=== PATIENT | female | born 1980 | race Caucasian/White ===

== ENCOUNTER 2017-02-22 11:25 | Inpatient (IN) ==
[2017-02-22] MEDS ORDERED: MORPHINE SULFATE 4 MG/1 ML IVP ONE (11:51)
[2017-02-22] MEDS ORDERED: Sodium Chloride 0.9% 1,000 ML PRIMARY IV ONE ×3 (11:51→17:04)
[2017-02-22] MEDS ORDERED: ONDANSETRON 4 MG/2 ML VIAL IVP ONE (11:51)
[2017-02-22] MEDS ORDERED: NORMAL SALINE 10 ML SYRINGE FLUSH IVP PRN ×8 (11:51→17:25)
[2017-02-22 12:19] LABS: BASOPHILS # (AUTO) 0.04 10*3/UL; BASOPHILS % (AUTO) 0.5 % (0-1); EOSINOPHILS # (AUTO) 0.23 10*3/UL; Hematocrit [HCT] 39.9 % (37.0-47.0); LYMPHOCYTES # (AUTO) 2.37 10*3/uL; MEAN CORPUSCULAR HEMOGLOBIN 27.1 PG (27-31); MEAN CORPUSCULAR HGB CONC 32.6 g/dL (33-37); MEAN CORPUSCULAR VOLUME 83.3 FL (81-99); MEAN PLATELET VOLUME 10.4 FL (7.4-12.2); MONOCYTES # (AUTO) 0.79 10*3/UL (0.3-0.8); MONOCYTES % (AUTO) 10.2 % (5-15); NEUTROPHILS # (AUTO) 4.29 10*3/UL; NEUTROPHILS % (AUTO) 55.4 % (50-80); RED BLOOD COUNT 4.79 10^6/uL (4.20-5.40)
[2017-02-22 12:20] LABS: BLOOD UREA NITROGEN 10 mg/dL (7-22); BUN/CREATININE RATIO 16.66 (6-20); LIPASE 106 IU/L (23-300); SERUM ALBUMIN 4.2 g/dL (3.5-4.8)
[2017-02-22 12:21] LABS: BILIRUBIN,URINE NEGATIVE (NEG); CLARITY,URINE CLEAR (CLEAR); COLOR,URINE YELLOW (Y); GLUCOSE, URINE (UA) NEGATIVE (NEG); NITRATE,URINE POSITIVE (NEG); OCCULT BLOOD,URINE MODERATE (NEG); PH,URINE 6.5 (5.0-8.5); PLATELET MORPHOLOGY COMMENT NORMAL MORPHOLOGY (NORM); PROTEIN,URINE >300 mg/dl (NEG); RBC MORPHOLOGY COMMENT NORMAL MORPHOLOGY (NORM); UROBILINOGEN,URINE 0.2 EU/dL (0.2); WBC MORPHOLOGY COMMENT NORMAL MORPHOLOGY (NORM)
[2017-02-22 12:28] LABS: BACTERIA,URINE MODERATE; SQUAMOUS EPITHELIAL CELL,UR RARE
[2017-02-22 14:48] LABS: URINE SAMPLE TYPE CATH SPECIMEN
[2017-02-22] MEDS ORDERED: MORPHINE SULFATE 2 MG/1 ML IVP ONE ×2 (15:01→17:04)
--- NOTE | 2017-02-22 15:12 | DI ---
Exam: US OB/ENDOVAG INDICATION: Suspected ectopic, history of pelvic pain early COMPARISON: No prior pelvic ultrasound available TECHNIQUE: Real-time sonographic evaluation of the female pelvis obtained using grayscale and color flow. FINDINGS: LMP is noted to be 12/31/16. Uterus measures 10.0 x 5.1 x 4.7 cm no focal myometrial lesion. No intrauterine gestational sac is seen. In the left ovary there is a 1.5 x 1.3 x 0.1 cm complex cystic structure is small echogenic focus demonstrating cardiac activity and pole measuring 6 mm. The heart rate at 130 bpm. This is concerning for a left adnexal gestational sac/ectopic which by mean sac diameter with be at approximately 6 weeks 2 day. Flow to left ovaries demonstrated. No focal right ovarian lesion. Small amount of free fluid is noted. IMPRESSION: 1. Left ovarian complex cyst measuring 1.5 x 1.3 x 0.1 cm with yolk sac present and pole. cardiac activity is measured at 130 bpm. This would be compatible with an ectopic left ovarian at 6 weeks 2 day gestational age. 2. Small amount of free fluid the pelvis. 3. No intrauterine gestational sac is seen. Discussed with Dr. Hussain Calderon on 02/22 15:11 (-06:00) [employer] 02/22/17 15:12 Call Doctor Regarding Above results, called Dr. Hussain Calderon on 02/22 15:10 (-06:00)
[2017-02-22] MEDS ORDERED: ROCURONIUM 10 MG/1 ML - 5 ML VIAL IVP ONE (15:17)
[2017-02-22] MEDS ORDERED: SUCCINYLCHOLINE CHLORIDE 20 MG/1 ML - 10 ML ONE (15:17)
[2017-02-22] MEDS ORDERED: CefOXitin Inj 2 GM in Sodium Chloride 0.9% 100 ML IV SCH (15:30)
[2017-02-22] MEDS ORDERED: Lactated Ringers 1,000 ML PRIMARY IV SCH ×3 (15:30→17:15)
--- NOTE | 2017-02-22 15:34 | PDOC ---
HPI - History of Present Illness Date and Time of Service: 923 at 1525 Chief Complaint: Pelvic pain History of Present Illness: 36-year-old female who believes that she is inserted have an abdominal pain today. Patient now rates pain as an 8 out of 10. It is made worse by movement. It is located right and left. Patient states that she had a right ectopic in the past. She has had multiple miscarriages no living natural children. Patient feels nauseated. States that she has not passed out. Ultrasound shows a left ectopic be in 6 weeks 2 days in gestational age. There is a heart rate of 135. Past Medical History Medical History: Polycystic ovarian disease Surgical History: Ectopic Tobacco Use: Never Smoker In the Past 12 Months, Have Used or Abuse Any of the Following Substance: None Medication / Allergies Home Medications: Home Medications Medication Instructions Recorded Confirmed Type Metoprolol Tartrate 50 mg PO BID 02/22/17 02/22/17 History metFORMIN Tab [Glucophage Tab] 500 mg PO BID 02/22/17 02/22/17 History Allergies/Adverse Reactions: Allergies 3 Allergy/AdvReac Type Severity Reaction Status Date / Time No Known Allergies Allergy Unverified 02/22/17 11:35 Exam - Vitals Vital Signs: Vital Signs Temperature 96.9 F Temperature Source Temporal Artery Scan Pulse Rate [Pulse Oximeter] 105 Respiratory Rate 18 Blood Pressure [Right Arm] 135/77 Pulse Ox 98 Oxygen Delivery Method Room Air Height 5 ft 4 in Weight 220 lb - General General Appearance: Cooperative, Mild Distress - Head Head Exam: Normocephalic - Eye Eye Exam: POSITIVE: PERRL, EOMI - Neck Neck Exam: Full ROM, No Tenderness - Respiratory Respiratory Exam: POSITIVE: Clear to Auscultation - Bilaterally, Breathing Non Labored - Cardiovascular Cardiovascular Exam: POSITIVE: RRR, No Murmur, No Clicks - GI/Abdominal GI/Abdominal Exam: POSITIVE: Non Distended, Soft, No Masses, Positive for RUQ Pain, No Hepatomegaly, No Splenomegaly (Patient has tenderness greater in the left pelvic area than the right. There is rebound but no guarding at this time) - Rectal Rectal Exam: POSITIVE: Deferred - External Exam: POSITIVE: Deferred - Extremities Extremities Exam: POSITIVE: Full ROM, Normal Capillary Refill, No Clubbing Present, No Edema Present - Neurological Neurological Exam: POSITIVE: Alert, Oriented x 3 - Psychiatric Psychiatric Exam: POSITIVE: Normal Affect, Normal Mood - Integumentary Integumentary Exam: POSITIVE: Normal Color, Warm Results - Labs CBC and BMP: 02/22/17 11:52 02/22/17 11:52 Assessment and Plan - Patient Problems (1) Ectopic , tubal Current Visit: Yes Status: Acute Code(s): O00.10 - Tubal without intrauterine - Assessment / Plan Additional Assessment/Plan Details: At the present time, I think patient does need to have surgery. She did drop her blood pressure 6 in the emergency department. This probably responded promptly to Tanner the patient flat and given a fluid bolus. The question is whether or not the tube can be safe since she's had a previous ectopic . 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 They both state that it is unlikely to have a tube preserving procedure done at this time. I discussed the situation with the patient and her family. They all understand that there is a high likelihood that this will leave her infertile. There are other methods to become of better available to home. They all understand this. They understand the risk of surgery. They have given consent. The patient in the family understand I am a general surgeon not an OB/ PIPING DRAFTER surgeon
[2017-02-22] MEDS ORDERED: BUPIVACAINE 0.5% W/ EPI - 10 ML VIAL ONE (15:44)
[2017-02-22] MEDS ORDERED: Sodium Chloride 0.9% vial 20 ML ONE (15:44)
[2017-02-22] MEDS ORDERED: Acetaminophen 1000mg Inj 1,000 MG/100 ML VIAL IV ONE (16:39)
--- NOTE | 2017-02-22 17:04 | GEN.OPNOTE ---
Operative Note Surgery Date: 02/22/17 Preoperative Diagnosis: Ectopic Postoperative Diagnosis: Ruptured ectopic with intra-abdominal hemorrhage Procedure: Laparoscopic salpingo-ectomy for ectopic Anesthesia Provider: Alvarez Oviedo CRNA Anesthesia Type: General Estimated Blood Loss (mL): 850 Fluids: 2 g of Mefoxin. 2500 mL of LR Pathology: Left fallopian tube and ectopic Indications: Patient has a left ectopic Findings: Ruptured ectopic of the left adnexal structures. This is a tubal that had ruptured. 850 mL of blood aspirated out the abdomen prior to irrigation Complications: None Operative Summary: Patient is brought in the operating room. Placed supine position. Given general tracheal anesthesia. Prepped draped sterile fashion. Timeout performed per protocols. Quarter percent Marcaine was injected at all trocar sites. I made a small incision below the umbilicus. Veress needle inserted pneumoperitoneum obtained. Using the Visiport place a 10 mm trocar and camera. Patient had large amount of blood seen within the abdominal cavity. Under direct laparoscopic visualization a 5 mm placed suprapubically. I then aspirated out 850 mL of clotted an old appearing blood. I then placed a 10 mm trocar the left lower quadrant. I then grasped the fallopian tube with a grasper. Using the gyrus I carefully cauterized and dissected the fallopian tube from the ovary. We then carefully dissected the fallopian tube completely out using the gyrus. When I got beyond the ectopic I then went across the fallopian tube with the gyrus. Put the fallopian tube and ectopic contents into a Endo Catch bag. But the Endo Catch bag out through the left lower quadrant incision. We then inspected there is no active bleeding was identified. The right and left ovaries were identified photographs taken. The right fallopian tube was shortened but appeared to be intact. We irrigated until clear. Deinsufflated the abdomen. There are only small trocar fascial defects of they were not closed. Skin reapproximated using 4-0 Vicryl simple interrupted subcutaneous stitches. Steri-Strips were applied. Sterile dressings applied. All counts were correct. Patient transferred recovery room in stable condition. Patient Problems - Patient Problem List (1) Ectopic , tubal Current Visit: Yes Status: Acute Code(s): O00.10 - Tubal without intrauterine Category: Medical
[2017-02-22] MEDS ORDERED: MORPHINE SULFATE 2 MG/1 ML IVP PRN ×2 (17:07→17:25)
[2017-02-22] MEDS ORDERED: oxyCODONE IR Tab 5 MG TAB PO PRN (17:07)
[2017-02-22] MEDS ORDERED: Acetaminophen 1000mg Inj 1,000 MG/100 ML VIAL IV PRN (17:07)
[2017-02-22] MEDS ORDERED: ONDANSETRON 4 MG/2 ML VIAL IVP PRN (17:07)
[2017-02-22] MEDS ORDERED: HYDROmorphone 2 MG/1 ML IVP PRN (17:16)
[2017-02-22] MEDS ORDERED: Prochlorperazine Edisylate Inj 10mg/2ml vial IVP PRN (17:16)
[2017-02-22] MEDS ORDERED: Sodium Chloride 0.9% 100 ML IV ONE (17:18)
--- NOTE | 2017-02-22 17:28 | CRNA.PROGR ---
Anesthesia Time - - Start date: 02/22/17 End date: 02/22/17 - Procedure/Recovery Time Anesthesia : Time In: 15:38 Anesthesia : Time Out: 17:09 Anesthesia : Total Time: 91 - Total Anesthesia Time Total Anesthesia Time (minutes): 91 - Other Weight: 99.79 kg Height: 5 ft 4 in Body Mass Index (BMI): 37.8 Physical Status: P3 (Emergency) Anesthesia Type: General Anesthesia : ET
[2017-02-22] MEDS ORDERED: Sodium Chloride 0.9% 1,000 ML ONE (18:00)
[2017-02-22] MEDS: oxyCODONE IR Tab 5 MG TAB PO PRN (19:25)
[2017-02-22] MEDS: Lactated Ringers 1,000 ML PRIMARY IV SCH (19:30)
[2017-02-22] MEDS: Metoprolol TARTRATE Tab 50 MG TAB PO SCH (20:38)
[2017-02-22] MEDS: metFORMIN 500 MG TABLET PO SCH (20:38)
[2017-02-22 21:05] LABS: Hematocrit [HCT] 29.2 % (37.0-47.0); Hemoglobin [HGB] 9.1 g/dL (12.0-16.0)
--- NOTE | 2017-02-23 01:31 | PDOC ---
Abdomen/Flank HPI - General Chief Complaint: Abdomen Pain Stated Complaint: ABD PAIN Date Seen by Provider: 02/22/17 Time Seen by Provider: 11:35 Source: POSITIVE: Patient, Spouse Exam Limitations: POSITIVE: No limitations Nurse's Notes Reviewed & Considered: Yes EMS Report Reviewed & Considered: Verbal - History of Present Illness Initial Comments: The patient is a 36-year-old female who presents to the emergency room by ambulance. Patient states that for the past 3 or 4 days she has had some intermittent discomfort in her lower abdomen, right greater than left. 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 Patient states she's had nausea but no vomiting. She states she had an ectopic in 2012 on the right and states that her present symptoms are similar to what she experienced at that time. Her last normal menstrual period was 31 December. She states she has had "a little vaginal bleeding today ". No fevers or chills. No vomiting, diarrhea, melena, hematochezia, hematemesis, dysuria or hematuria. She last ate around 7 PM last night. Body Location Affected: REPORTS: Abdomen Timing: REPORTS: Abrupt, Other (As above) Duration: 1 hour Severity: Moderate Quality: REPORTS: "Pain" Abdominal Pain Onset Location: REPORTS: RLQ, LLQ Abdominal Pain Radiation: REPORTS: No radiation Context: REPORTS: None Modifying Factors: improves with: Nothing Associated Symptoms: REPORTS: Light Headedness Similar Symptoms Previously: Yes (with previous ectopic in 2002) Recent Care Received: REPORTS: Denies Any Prior Injuries Related to Current Complaint?: No - Patient Home Medications Home Medications: Home Medications Metoprolol Tartrate 50 mg PO BID 02/22/17 metFORMIN Tab [Glucophage Tab] 500 mg PO BID 02/22/17 - Patient Allergies Allergies/Adverse Reactions: Allergies 3 Allergy/AdvReac Type Severity Reaction Status Date / Time No Known Allergies Allergy Unverified 02/22/17 11:35 Past Medical History - heen HEENT History: Denies History Cardiovascular History: Hypertension Respiratory History: Denies History Gastrointestinal History: Denies History Genitourinary History: Denies History Endocrine History: Denies History Musculoskeletal History: Denies History Prosthesis or Implant: No Neurological History: Denies History Blood Disorders: Denies History Psychiatric History: Denies History History of Sexually Transmitted Diseases: No Female Reproductive History: Other (please comment) Additional Female Reproductive History: PCOS LMP: EARLY DECEMBER Obstetrical History: Other (please comment) Additional Obstetrical History: ECTOPIC , PARTIAL RIGHT FALLOPIAN TUBE REMOVAL Cancer History: Denies History In Past Year Been Physically Harmed or Verbally Threatened: No History of MDRO: No History of Other Communicable Diseases: No Tobacco Use: Never Smoker In the Past 12 Months, Have Used or Abuse Any Substance: None Previous Surgical History: Yes Past Medical History Reviewed: Reviewed - No Changes ROS - Limitations ROS Limitations: No Limitations Constitution: REPORTS: Denies Symptoms Cardiovascular: REPORTS: Denies Cardiac Symptoms Respiratory: REPORTS: Denies Resp Symptoms Neurological: REPORTS: Denies Neuro Symptoms Gastrointestinal: REPORTS: Abdominal Pain (As above; see diagram), Nausea Endocrine: REPORTS: Denies Symptoms Genitourinary: REPORTS: Denies Symptoms Eyes: REPORTS: Denies Symptoms ENT: REPORTS: Denies Symptoms Skin: REPORTS: Denies Skin Symptoms Lympathic: REPORTS: Denies Lympathic Symptoms Immunologic: POSITIVE: Denies Symptoms Psychiatric: POSITIVE: Denies Psych Symptoms Abdominal/Flank Pain PE - General Appearance General Appearance: POSITIVE: Alert, Cooperative, No Acute Distress, No Evidence of Trauma - HEENT HEENT: POSITIVE: Head Inspection Nml, Eyes Inspection Nml, Ears Inspection Nml, Nose Inspection Nml, Oral/Dental Inspect. Nml, Pharynx Inspect. Nml, PERRL, EOMI - Neck Neck: POSITIVE: Normal Inspection, No Apparent Injury - Respiratory Respiratory: POSITIVE: No Respiratory Distress, Breath Sounds Normal, Chest Non- Tender - Cardiovascular Cardiovascular: POSITIVE: Regular Rate and Rhythm, Heart Sounds Normal, Equal Pulses, Strong Pulses Peripheral Pulses: Radial (R): 2+, Radial (L): 2+ - Chest Chest: POSITIVE: Non Tender - Abdomen Abdomen: Soft: (All Quadrants), Normal Bowel Sounds: (All Quadrants), Denies Tenderness: (LUQ), (RUQ), No Splenomegaly: (All Quadrants), No Hepatomegaly: ( All Quadrants), No Guarding: (All Quadrants), No Rebound: (All Quadrants), No Palpable Pulse: (All Quadrants), No Palpabale Mass: (All Quadrants), No Distention: (All Quadrants), No Rigidity: (All Quadrants), Tenderness Noted: ( LLQ), (RLQ) Additional Abdominal Details: Abdominal examination shows bowel sounds to be present. She does express pain on palpation lower abdomen, right somewhat more than left. 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 Fluid in pelvis. Lab Results Reviewed by Me: Yes (quantitative hCG 17,264) CBC and BMP: 02/22/17 21:03 02/22/17 11:52 - Patient's Progress Pain Medication Addressed: POSITIVE: Yes (Patient given morphine sulfate for pain) Re-examine Time: 14:35 Re-Examine Comment: Diagnosis of ectopic discussed with patient and her family. Dr. Chirinos, surgeon, contacted, who will come to the emergency room to further evaluate and treat. Status: POSITIVE: Unchanged, Re-Examined - Consult Consult (If Yes, Name of Consulting MD & Time Called): Yes (Dr. Martinez, surgeon, [id number]) Consulting MD will see pt:: POSITIVE: In ED Counseled: POSITIVE: Patient, Family, RE: Lab Results, RE: Radiology Results, RE : DX, RE: Need for F/U Patient Care Time - Estimated PCT Patient Care Time (In Minutes): 60 Vital Signs - VS Reviewed Vital Signs Reviewed: Yes Discharge Clinical Impression: Ectopic , tubal Discharge Disposition: Admit to Inpatient Condition: Fair Date Decision to Admit to Inpatient: 02/22/17 Time Decision to Admit to Inpatient: 14:15
[2017-02-23] MEDS: oxyCODONE IR Tab 5 MG TAB PO PRN ×5 (02:35→23:06)
[2017-02-23 05:23] LABS: BASOPHILS # (AUTO) 0 10*3/UL; BASOPHILS % (AUTO) 0 % (0-1); EOSINOPHILS # (AUTO) 0 10*3/UL; EOSINOPHILS % (AUTO) 0 % (0-8); Hematocrit [HCT] 25.9 % (37.0-47.0); Hemoglobin [HGB] 8.1 g/dL (12.0-16.0); MEAN CORPUSCULAR HEMOGLOBIN 26.9 PG (27-31); MEAN CORPUSCULAR HGB CONC 31.3 g/dL (33-37); MEAN PLATELET VOLUME 10.7 FL (7.4-12.2); MONOCYTES # (AUTO) 0.66 10*3/UL (0.3-0.8); MONOCYTES % (AUTO) 5.7 % (5-15); NEUTROPHILS % (AUTO) 84.6 % (50-80); RED BLOOD COUNT 3.01 10^6/uL (4.20-5.40)
[2017-02-23 05:45] LABS: BLOOD UREA NITROGEN 8 mg/dL (7-22); BUN/CREATININE RATIO 13.33 (6-20)
[2017-02-23 05:46] LABS: PLATELET MORPHOLOGY COMMENT NORMAL MORPHOLOGY (NORM); RBC MORPHOLOGY COMMENT SEE COMMENTS (NORM); WBC MORPHOLOGY COMMENT NORMAL MORPHOLOGY (NORM)
[2017-02-23] MEDS: Lactated Ringers 1,000 ML PRIMARY IV SCH (07:19)
[2017-02-23] MEDS: metFORMIN 500 MG TABLET PO SCH ×2 (09:07→21:05)
[2017-02-23] MEDS: Metoprolol TARTRATE Tab 50 MG TAB PO SCH ×2 (09:07→21:05)
[2017-02-23] MEDS: Acetaminophen 1000mg Inj 1,000 MG/100 ML VIAL IV PRN ×2 (10:30→16:59)
[2017-02-23] MEDS: ONDANSETRON 4 MG/2 ML VIAL IVP PRN (10:30)
--- NOTE | 2017-02-23 11:43 | PDOC(PROG) ---
Subjective Post Op Day: postop day 1 Pain Management: PO Garvin Catheter: No Flatus: No Diet: Regular Date and Time of Service: 02/23/2017 at 1145 Interval History: Patient states that she overall feels better than she did yesterday little bit lightheaded when she gets up and walks. She initially was not lightheaded or dizzy when she is walking last night after surgery. Little bit of nausea Objective : Data - Labs CBC and BMP: 02/23/17 04:00 02/23/17 04:00 - Vital Signs Vital Signs and I&O: Vital Signs - Last Taken Temperature 98.3 F 02/23/17 08:14 Pulse Rate 94 02/23/17 08:14 Respiratory Rate 20 02/23/17 08:14 Blood Pressure 124/78 02/23/17 08:14 Pulse Ox 97 02/23/17 08:14 Intake and Output (24hr x 4 totals) 02/21/17 02/22/17 02/23/17 02/24/17 05:59 05:59 05:59 05:59 Intake Total 345 / 1545 240 / 240 Output Total 1000 / 1000 420 / 420 Balance -655 / 545 -180 / -180 Objective : Exam - General General Appearance: No Acute Distress, Cooperative - Respiratory Respiratory Exam: Clear to Auscultation - Bilaterally - GI/Abdominal GI/Abdominal Exam: Non Tender, Non Distended, Soft Assessment and Plan - Patient Problems (1) Ectopic , tubal Current Visit: Yes Status: Acute Code(s): O00.10 - Tubal without intrauterine - Assessment / Plan Additional Assessment/Plan Details: Present time patient's hemoglobin has dipped down to 8.1. Was 9.1 after surgery. I do not think she is actively bleeding. Her vital signs are stable. We will watch today. Check an H&H in around 3 PM..
--- NOTE | 2017-02-23 12:10 | CRNA.PROGR ---
Anesthesia Note - Progress Notes Anesthesia Progress Note: Pt is sitting up in bed, eating lunch, she experienced mild nausea with breakfast this morning, she states it is better now,. She has been up ambulating and to the restroom. She states that her pain is well under control. She denies any residual problems with the general anesthesia. Current VS are stable. Vital Signs (Last 8 hours) Temp Pulse Resp BP Pulse Ox 02/23/17 08:14 98.3 F 94 20 124/78 97 02/23/17 05:10 95 02/23/17 05:02 98.4 F 94 18 105/65 95
[2017-02-23] MEDS: D5-1/2NS + 10mEq KCL 1,000 ML PRIMARY IV SCH (12:18)
[2017-02-23 15:13] LABS: Hematocrit [HCT] 25.4 % (37.0-47.0)
--- NOTE | 2017-02-23 21:33 | DI ---
EXAM: US Duplex Left Lower Extremity Veins CLINICAL HISTORY: Physician Notes: Tech Comments: TECHNIQUE: Real-time ultrasound scan of the veins of the left lower extremity with color Doppler flow, spectral waveform analysis and compression. COMPARISON: No relevant prior studies available. FINDINGS: Deep veins: Unremarkable. No DVT in the visualized common femoral, femoral, proximal deep femoral or popliteal veins. The veins are compressible with normal color flow and augmentation. Superficial veins: No thrombus in the visualized segments of the greater saphenous vein. Soft tissues: No acute findings. IMPRESSION: No DVT demonstrated.
[2017-02-24] MEDS: oxyCODONE IR Tab 5 MG TAB PO PRN (03:11)
[2017-02-24 05:11] LABS: Hematocrit [HCT] 24.5 % (37.0-47.0); Hemoglobin [HGB] 7.5 g/dL (12.0-16.0); MEAN CORPUSCULAR HEMOGLOBIN 26.8 PG (27-31); MEAN CORPUSCULAR HGB CONC 30.6 g/dL (33-37); MEAN CORPUSCULAR VOLUME 87.5 FL (81-99); MEAN PLATELET VOLUME 10.2 FL (7.4-12.2); RED BLOOD COUNT 2.8 10^6/uL (4.20-5.40)
[2017-02-24] MEDS: Metoprolol TARTRATE Tab 50 MG TAB PO SCH (08:29)
[2017-02-24] MEDS: D5-1/2NS + 10mEq KCL 1,000 ML PRIMARY IV SCH (08:30)
[2017-02-24] MEDS: metFORMIN 500 MG TABLET PO SCH (08:30)
[2017-02-24] MEDS: ONDANSETRON 4 MG/2 ML VIAL IVP PRN (08:32)
[2017-02-24] MEDS: Acetaminophen 1000mg Inj 1,000 MG/100 ML VIAL IV PRN (10:05)
[2017-02-24] MEDS ORDERED: HYDROcodone-APAP 7.5 MG-325 MG TABLET PO PRN (12:48)
[2017-02-24] MEDS ORDERED: MAGNESIUM 400 MG/5 ML - 30 ML (MILK OF MAGNESIA) PO ONE ×2 (12:49→12:50)
--- NOTE | 2017-03-03 15:09 | DCSUMMARY ---
Discharge Summary Admit Date: 03/24/17 Discharge Date: 03/26/17 Admitting Diagnosis: ectopic Discharge Diagnosis: Ectopic Primary Surgery and Date: Salpingo-ectomy Hospital Course: Patient is admitted for neck topic . She is found Havel wants 900 mL of fluid in her abdomen. She had left ectopic . She underwent removal of the left fallopian tube with ectopic . Her hemoglobin drifted down to 7.5. Crit was 24. She was tolerating this. She is nauseated secondary to her pain medication this was switched. She is able these just discharged in stable condition Exam - Vitals Vital Signs: Vital Signs Temperature 97.8 F Temperature Source Oral Pulse Rate [Pulse Oximeter] 88 Pulse Rate 93 Respiratory Rate 20 Blood Pressure [Left Arm] 120/74 Blood Pressure [Right Arm] 131/92 Blood Pressure 122/86 Pulse Ox 96 Oxygen Flow Rate 2 Oxygen Delivery Method Room Air Height 5 ft 4 in Weight 234 lb - General General Appearance: No Acute Distress - Respiratory Respiratory Exam: POSITIVE: Clear to Auscultation - Bilaterally - Cardiovascular Cardiovascular Exam: POSITIVE: RRR - GI/Abdominal GI/Abdominal Exam: POSITIVE: Normal Bowel Sounds, Non Tender, Non Distended Patient Problems - Patient Problem List (1) Ectopic , tubal Status: Acute Code(s): O00.10 - Tubal without intrauterine Qualifiers: Intrauterine status: without intrauterine Category: Medical
== END 2017-02-24 14:06 | disposition home or self-care (01) | DRG 777 ==
LOC: ER 11:25 → OR 15:20 → MED/SURG 17:40
PROVIDERS: ADMIT Surgery; ATTEND Surgery
PROC: GELAPAR (ICD-10-PCS; 2017-02-22 16:00)